=== PATIENT | male | born 1975 | race Caucasian/White ===

== ENCOUNTER 2019-01-19 07:27 | Outpatient (CLI) | payer BC ==
--- NOTE | 2019-01-19 07:53 | ULT ---
US Hepatic Doppler History: Abdominal pain Comparison: None Findings: Real-time grayscale, color, and spectral analysis of the liver was performed including the hepatic vessels Diffuse increased hepatic echotexture. Normal spectral analysis and directional flow of the portal ve ins and hepatic veins. No hepatic mass. The liver is enlarged measuring 21.2 cm. Gallbladder is contracted. No pericholecystic fluid. Spleen is within normal limits. The pancreas is poorly seen. Visualized portion of the aorta and IVC are unremarkable. Portal vein is patent with antegrade flow. Common bile duct measures 5 mm Impression: 1. Hepatomegaly with diffuse hepatic steatosis. No hepatic mass. 2. Normal directional flow and spectral appearance of the portal veins and hepatic veins.
== END 2019-01-19 07:28 | disposition home or self-care (01) ==
LOC: SCSULT 07:27
PROVIDERS: ATTEND Internal Medicine Gastroenterology
DX: K52.9 Noninfective gastroenteritis and colitis, unspecified (principal); R94.5 Abnormal results of liver function studies; R14.0 Abdominal distension (gaseous); R16.0 Hepatomegaly, not elsewhere classified; K76.0 Fatty (change of) liver, not elsewhere classified
CPT/HCPCS: 76705

== ENCOUNTER 2020-08-10 17:36 | Inpatient (IN) | payer OTHER, BC ==
[~2020-08-10 17:36] MED LIST: Iopamidol-370 76% 500 ML 1 ML ONE
[2020-08-10] MEDS ORDERED: Fentanyl 100 MCG/2 ML VIAL ONE (18:08)
[2020-08-10 18:20] LABS: #Basophils 0.1 thou/uL (0.0-0.2); #Eosinphils 0.1 thou/uL (0.0-0.7); #Lymphocytes 4.2 thou/uL (1.20-3.40); #Monocytes 0.9 thou/uL (0.11-0.59); #Neutrophils 10.5 thou/uL (1.40-6.50); %Basophils 0.5 % (0.0-1.0); %Eosinophils 0.6 % (0.0-10.0); %Lymphocytes 26.4 % (21.0-51.0); %Monocytes 5.8 % (0.0-10.0); %Neutrophils 66.7 % (42.0-75.0); Hemoglobin 12.8 g/dL (14.0-18.0); Mean Corpuscular HGB CONC 32.2 g/dL (32.0-36.0); Mean Corpuscular Hemoglobin 30.9 pg (27.0-31.0); Mean Platelet Volume 7.2 fL (7.4-10.4); Platelet Count 205 thou/uL (130-400); RBC Distribution Width 11.8 % (11.5-14.5); Red Blood Cell (RBC) Count 4.16 mill/uL (4.70-6.10); White Blood Cell (WBC) Count 15.8 thou/uL (4.8-10.8)
[2020-08-10 18:26] LABS: INR-International Normal Ratio 1.1; PTT 23.3 sec (22.9-36.1)
[2020-08-10 18:38] LABS: Anion Gap 13 mmol/L (10-20); BUN (Urea Nitrogen) 14 mg/dL (8.9-20.6); Calc. Creatinine Clearance 0 mL/min (70-130); Carbon Dioxide 24 mmol/L (22-29); Chloride 103 mmol/L (98-107); Potassium 3.2 mmol/L (3.5-5.1); Sodium 137 mmol/L (136-145)
[2020-08-10 18:39] LABS: ALT (SGPT) 56 U/L (8-55); AST (SGOT) 44 U/L (5-34); Albumin 3.7 g/dL (3.5-5.0); Alkaline Phosphatase 62 U/L (40-110); Bilirubin, Total 0.5 mg/dL (0.2-1.2); Calcium 8.3 mg/dL (7.8-10.44); Globulin 2.3 g/dL (2.4-3.5); Glucose 176 mg/dL (70-105)
[2020-08-10] MEDS ORDERED: Ketorolac Tromethamine 30 MG/ML VIAL ONE (18:57)
[2020-08-10] MEDS ORDERED: Triple Antibiotic Oint 1 GM Packet ONE ×2 (20:32→20:38)
[2020-08-10 22:17] LABS: SARS-CoV-2 NAA Rapid Test Not Detected (NotDetected)
[2020-08-10] MEDS ORDERED: Ondansetron ODT 4 MG TAB PO PRN (23:08)
[2020-08-10] MEDS ORDERED: Ondansetron PF 4 MG/2 ML Vial IVP PRN (23:08)
[2020-08-10] MEDS ORDERED: Cyclobenzaprine 10 MG TAB PO PRN (23:08)
[2020-08-10] MEDS ORDERED: Dextrose 5% in Water 1,000 ML IV PRN (23:08)
[2020-08-10] MEDS ORDERED: Dextrose 50% Abboject 50 ML SYRINGE SLOW IVP PRN (23:08)
[2020-08-10] MEDS ORDERED: Promethazine HCl 25 MG/ML VIAL IM PRN (23:08)
[2020-08-10 23:20] VITALS: BMI 38.2
[2020-08-10] MEDS ORDERED: Famotidine/PF 20 mg/2ml Vial SLOW IVP SCH (23:30)
[2020-08-10] MEDS: Famotidine/PF 20 mg/2ml Vial SLOW IVP SCH (23:37)
[2020-08-10] MEDS: Morphine 2 MG/ML VIAL SLOW IVP PRN (23:41)
[2020-08-10] MEDS: Sodium Chloride 0.9% 1,000 ML IV SCH (23:50)
[2020-08-10] MEDS: traMADol HCl 50 MG TAB PO SCH (23:50)
[2020-08-10] MEDS: Acetaminophen 500 MG TAB PO SCH (23:51)
[2020-08-11 00:14] LABS: Hemoglobin 13.4 g/dL (14.0-18.0)
[2020-08-11] MEDS: Morphine 2 MG/ML VIAL SLOW IVP PRN ×2 (02:12→08:52)
[2020-08-11 04:07] LABS: Anion Gap 15 mmol/L (10-20); BUN (Urea Nitrogen) 19 mg/dL (8.9-20.6); Calc. Creatinine Clearance 169 mL/min (70-130); Calcium 8.2 mg/dL (7.8-10.44); Carbon Dioxide 21 mmol/L (22-29); Chloride 105 mmol/L (98-107); Glucose 194 mg/dL (70-105); Potassium 4.5 mmol/L (3.5-5.1); Sodium 136 mmol/L (136-145)
[2020-08-11 04:42] LABS: Band 31 % (5-11); Hemoglobin 12.7 g/dL (14.0-18.0); Lymphocytes 4 % (21-51); MDiff Complete? YES; Mean Corpuscular HGB CONC 34.4 g/dL (32.0-36.0); Mean Corpuscular Hemoglobin 32.7 pg (27.0-31.0); Mean Corpuscular Volume 95.1 fL (78.0-98.0); Mean Platelet Volume 7.6 fL (7.4-10.4); Monocytes 7 % (0-10); Neutrophil 58 % (42-75); Platelet Count 198 thou/uL (130-400); RBC Distribution Width 12.1 % (11.5-14.5); Red Blood Cell (RBC) Count 3.89 mill/uL (4.70-6.10); White Blood Cell (WBC) Count 20.1 thou/uL (4.8-10.8)
[2020-08-11] MEDS: Acetaminophen 500 MG TAB PO SCH ×3 (05:24→18:05)
[2020-08-11] MEDS: traMADol HCl 50 MG TAB PO SCH ×3 (05:25→18:07)
[2020-08-11 08:17] LABS: Hemoglobin 13.2 g/dL (14.0-18.0)
[2020-08-11] MEDS: Famotidine/PF 20 mg/2ml Vial SLOW IVP SCH ×2 (08:51→20:31)
[2020-08-11] MEDS: Sodium Chloride 0.9% 1,000 ML IV SCH (08:59)
[2020-08-11] MEDS: Simethicone Chewable 80 MG TAB PO PRN ×2 (11:42→18:05)
[2020-08-11] MEDS ORDERED: Gabapentin 300 MG CAP PO SCH ×2 (12:30→21:00)
[2020-08-11] MEDS: hydrALAZINE 20 MG/ML VIAL SLOW IVP PRN (15:12)
[2020-08-11] MEDS: Acetaminophen 325 MG TAB PO SCH (18:30)
[2020-08-11] MEDS: Oxazepam 10 MG CAP PO SCH (20:31)
[2020-08-11 20:48] LABS: Hemoglobin 11.8 g/dL (14.0-18.0)
[2020-08-11] MEDS: Gabapentin 300 MG CAP PO SCH (21:00)
[2020-08-12] MEDS: Acetaminophen 325 MG TAB PO SCH ×5 (00:06→23:35)
[2020-08-12] MEDS: traMADol HCl 50 MG TAB PO SCH ×5 (00:07→23:33)
[2020-08-12] MEDS: Simethicone Chewable 80 MG TAB PO PRN ×3 (00:11→23:33)
[2020-08-12] MEDS: Amlodipine 10 MG TAB PO SCH (06:22)
[2020-08-12] MEDS ORDERED: Ferrous Sulfate 325 MG TAB PO SCH (08:00)
[2020-08-12] MEDS: Losartan 25 MG TAB PO SCH (08:40)
[2020-08-12] MEDS: Thiamine 100 MG TAB PO SCH (08:41)
[2020-08-12] MEDS: Allopurinol 300 MG TAB PO SCH (08:41)
[2020-08-12] MEDS: Ascorbic Acid 500 mg Chewable Tablet PO SCH (08:41)
[2020-08-12] MEDS: Oxazepam 10 MG CAP PO SCH ×3 (08:41→21:17)
[2020-08-12] MEDS: Famotidine/PF 20 mg/2ml Vial SLOW IVP SCH (08:41)
[2020-08-12] MEDS: Folic Acid 1 MG TAB PO SCH (08:41)
[2020-08-12] MEDS: Gabapentin 300 MG CAP PO SCH ×4 (08:42→21:16)
[2020-08-12] MEDS: Ferrous Sulfate 325 MG TAB PO SCH ×2 (08:52→21:16)
[2020-08-12] MEDS ORDERED: Gabapentin 400 MG CAP PO SCH (09:00)
[2020-08-12 16:45] LABS: Hemoglobin 10.4 g/dL (14.0-18.0)
[2020-08-12] MEDS: Senokot S 8.6-50 MG TAB PO SCH (21:17)
[2020-08-13 06:13] LABS: #Eosinphils 0.1 thou/uL (0.0-0.7); #Lymphocytes 1.7 thou/uL (1.20-3.40); #Monocytes 1.8 thou/uL (0.11-0.59); #Neutrophils 11.8 thou/uL (1.40-6.50); %Basophils 0.2 % (0.0-1.0); %Eosinophils 0.3 % (0.0-10.0); %Lymphocytes 11.1 % (21.0-51.0); %Monocytes 11.8 % (0.0-10.0); %Neutrophils 76.5 % (42.0-75.0); Hemoglobin 9.9 g/dL (14.0-18.0); Mean Corpuscular HGB CONC 33.8 g/dL (32.0-36.0); Mean Corpuscular Hemoglobin 32.7 pg (27.0-31.0); Mean Corpuscular Volume 96.6 fL (78.0-98.0); Mean Platelet Volume 7.3 fL (7.4-10.4); Platelet Count 134 thou/uL (130-400); RBC Distribution Width 12.1 % (11.5-14.5); Red Blood Cell (RBC) Count 3.02 mill/uL (4.70-6.10); White Blood Cell (WBC) Count 15.4 thou/uL (4.8-10.8)
[2020-08-13] MEDS: traMADol HCl 50 MG TAB PO SCH ×4 (06:32→23:25)
[2020-08-13] MEDS: Acetaminophen 325 MG TAB PO SCH ×4 (06:33→23:25)
[2020-08-13] MEDS: Simethicone Chewable 80 MG TAB PO PRN ×3 (06:33→23:26)
[2020-08-13 06:38] LABS: Anion Gap 15 mmol/L (10-20); BUN (Urea Nitrogen) 11 mg/dL (8.9-20.6); Calc. Creatinine Clearance 225 mL/min (70-130); Calcium 8.4 mg/dL (7.8-10.44); Carbon Dioxide 21 mmol/L (22-29); Chloride 98 mmol/L (98-107); Glucose 128 mg/dL (70-105); Magnesium 2.2 mg/dL (1.6-2.6); Potassium 3.9 mmol/L (3.5-5.1); Sodium 130 mmol/L (136-145)
[2020-08-13] MEDS: Senokot S 8.6-50 MG TAB PO SCH ×2 (08:35→19:48)
[2020-08-13] MEDS: Polyethylene Glycol 3350 17 GM Packet PO SCH (08:35)
[2020-08-13] MEDS: Oxazepam 10 MG CAP PO SCH ×3 (08:35→19:49)
[2020-08-13] MEDS: Gabapentin 300 MG CAP PO SCH ×3 (08:36→19:49)
[2020-08-13] MEDS: Amlodipine 10 MG TAB PO SCH (08:37)
[2020-08-13] MEDS: Losartan 25 MG TAB PO SCH (08:37)
[2020-08-13] MEDS: Ascorbic Acid 500 mg Chewable Tablet PO SCH (08:37)
[2020-08-13] MEDS: Ferrous Sulfate 325 MG TAB PO SCH ×2 (08:38→19:49)
[2020-08-13] MEDS: Folic Acid 1 MG TAB PO SCH (08:38)
[2020-08-13] MEDS: Allopurinol 300 MG TAB PO SCH (08:38)
[2020-08-13] MEDS: Thiamine 100 MG TAB PO SCH (08:39)
[2020-08-14] MEDS: Simethicone Chewable 80 MG TAB PO PRN (05:31)
[2020-08-14] MEDS: traMADol HCl 50 MG TAB PO SCH ×4 (05:31→23:37)
[2020-08-14] MEDS: Acetaminophen 325 MG TAB PO SCH ×4 (05:32→23:36)
[2020-08-14] MEDS: Amlodipine 10 MG TAB PO SCH (06:18)
[2020-08-14] MEDS: Gabapentin 300 MG CAP PO SCH ×3 (08:27→20:57)
[2020-08-14] MEDS: Folic Acid 1 MG TAB PO SCH (08:28)
[2020-08-14] MEDS: Losartan 25 MG TAB PO SCH (08:28)
[2020-08-14] MEDS: Oxazepam 10 MG CAP PO SCH ×3 (08:28→20:56)
[2020-08-14] MEDS: Ferrous Sulfate 325 MG TAB PO SCH ×2 (08:28→20:56)
[2020-08-14] MEDS: Thiamine 100 MG TAB PO SCH (08:28)
[2020-08-14] MEDS: Ascorbic Acid 500 mg Chewable Tablet PO SCH (08:28)
[2020-08-14] MEDS: Allopurinol 300 MG TAB PO SCH (08:28)
[2020-08-14] MEDS: Senokot S 8.6-50 MG TAB PO SCH ×2 (08:29→20:55)
[2020-08-14] MEDS: Polyethylene Glycol 3350 17 GM Packet PO SCH (08:29)
[2020-08-14] MEDS: Neostigmine 0.5 MG in Syringe 0 ML SC SCH ×3 (10:15→20:56)
[2020-08-14] MEDS: hydrALAZINE 20 MG/ML VIAL SLOW IVP PRN (14:52)
[2020-08-15] MEDS: Neostigmine 0.5 MG in Syringe 0 ML SC SCH ×3 (03:12→20:36)
[2020-08-15] MEDS: traMADol HCl 50 MG TAB PO SCH ×4 (05:32→23:04)
[2020-08-15] MEDS: Acetaminophen 325 MG TAB PO SCH ×4 (05:32→23:04)
[2020-08-15] MEDS: Simethicone Chewable 80 MG TAB PO PRN (05:35)
[2020-08-15 06:27] LABS: Anion Gap 13 mmol/L (10-20); BUN (Urea Nitrogen) 12 mg/dL (8.9-20.6); Calc. Creatinine Clearance 238 mL/min (70-130); Calcium 8.8 mg/dL (7.8-10.44); Carbon Dioxide 27 mmol/L (22-29); Chloride 94 mmol/L (98-107); Glucose 124 mg/dL (70-105); Magnesium 2.4 mg/dL (1.6-2.6); Phosphorus 2.1 mg/dL (2.3-4.7); Potassium 3.1 mmol/L (3.5-5.1); Sodium 131 mmol/L (136-145)
[2020-08-15] MEDS ORDERED: Potassium Chloride 20 MEQ TAB PO SCH (07:15)
[2020-08-15] MEDS ORDERED: Potassium Phosphate 9 MMOL in Sodium Chloride 0.9% 100 ML IVPB SCH (07:15)
[2020-08-15 07:17] LABS: Band 12 % (5-11); Hemoglobin 10.4 g/dL (14.0-18.0); Lymphocytes 13 % (21-51); MDiff Complete? YES; Mean Corpuscular HGB CONC 33.5 g/dL (32.0-36.0); Mean Corpuscular Hemoglobin 32.5 pg (27.0-31.0); Mean Corpuscular Volume 97.2 fL (78.0-98.0); Mean Platelet Volume 6.8 fL (7.4-10.4); Monocytes 9 % (0-10); Neutrophil 66 % (42-75); Nucleated RBC 1 % (0); Platelet Count 206 thou/uL (130-400); RBC Distribution Width 12.3 % (11.5-14.5); Red Blood Cell (RBC) Count 3.21 mill/uL (4.70-6.10); White Blood Cell (WBC) Count 13.3 thou/uL (4.8-10.8)
[2020-08-15] MEDS: Ascorbic Acid 500 mg Chewable Tablet PO SCH (08:24)
[2020-08-15] MEDS: Thiamine 100 MG TAB PO SCH (08:24)
[2020-08-15] MEDS: Losartan 25 MG TAB PO SCH (08:25)
[2020-08-15] MEDS: Folic Acid 1 MG TAB PO SCH (08:25)
[2020-08-15] MEDS: Amlodipine 10 MG TAB PO SCH (08:26)
[2020-08-15] MEDS: Gabapentin 300 MG CAP PO SCH (08:27)
[2020-08-15] MEDS: Ferrous Sulfate 325 MG TAB PO SCH ×2 (08:27→20:36)
[2020-08-15] MEDS: Allopurinol 300 MG TAB PO SCH (08:27)
[2020-08-15] MEDS: Oxazepam 10 MG CAP PO SCH ×3 (08:28→20:37)
[2020-08-15] MEDS ORDERED: Furosemide 20 MG/2 ML VIAL SLOW IVP SCH (09:00)
[2020-08-15] MEDS ORDERED: Silver Sulfadiazine 50 GM JAR TP PRN (10:37)
[2020-08-15] MEDS: Senokot S 8.6-50 MG TAB PO SCH ×2 (11:55→20:39)
[2020-08-15] MEDS: Polyethylene Glycol 3350 17 GM Packet PO SCH (11:55)
[2020-08-15] MEDS: Gabapentin 100 MG CAP PO SCH ×2 (16:09→20:38)
[2020-08-15] MEDS: Ibuprofen 200 MG TAB PO SCH ×2 (16:09→20:38)
[2020-08-15 16:24] LABS: Anion Gap 14 mmol/L (10-20); BUN (Urea Nitrogen) 14 mg/dL (8.9-20.6); Calc. Creatinine Clearance 212 mL/min (70-130); Carbon Dioxide 26 mmol/L (22-29); Chloride 94 mmol/L (98-107); Glucose 119 mg/dL (70-105); Magnesium 2.4 mg/dL (1.6-2.6); Sodium 131 mmol/L (136-145)
[2020-08-15 16:40] LABS: Potassium 2.8 mmol/L (3.5-5.1)
[2020-08-15] MEDS ORDERED: Potassium Phosphate 40 MMOL in Sodium Chloride 0.9% 250 ML 250 ML IVPB SCH (17:15)
[2020-08-16] MEDS: Neostigmine 0.5 MG in Syringe 0 ML SC SCH ×2 (01:37→10:11)
[2020-08-16] MEDS: traMADol HCl 50 MG TAB PO SCH ×4 (05:28→23:01)
[2020-08-16] MEDS: Ibuprofen 200 MG TAB PO SCH ×3 (05:29→23:01)
[2020-08-16] MEDS: Acetaminophen 325 MG TAB PO SCH ×4 (05:29→23:00)
[2020-08-16 06:49] LABS: Anion Gap 13 mmol/L (10-20); BUN (Urea Nitrogen) 13 mg/dL (8.9-20.6); Calc. Creatinine Clearance 248 mL/min (70-130); Calcium 8.6 mg/dL (7.8-10.44); Carbon Dioxide 26 mmol/L (22-29); Chloride 97 mmol/L (98-107); Glucose 129 mg/dL (70-105); Magnesium 2.3 mg/dL (1.6-2.6); Phosphorus 2.4 mg/dL (2.3-4.7); Sodium 133 mmol/L (136-145)
[2020-08-16 06:54] LABS: Potassium 2.7 mmol/L (3.5-5.1)
[2020-08-16] MEDS ORDERED: Potassium Chloride 20 MEQ TAB PO SCH ×2 (07:00→18:45)
[2020-08-16] MEDS ORDERED: Potassium Phosphate 30 MMOL in Sodium Chloride 0.9% 250 ML 250 ML IVPB SCH (07:00)
[2020-08-16] MEDS: Amlodipine 10 MG TAB PO SCH (09:02)
[2020-08-16] MEDS: Gabapentin 100 MG CAP PO SCH ×3 (09:03→19:54)
[2020-08-16] MEDS: Oxazepam 10 MG CAP PO SCH ×3 (09:03→19:53)
[2020-08-16] MEDS: Ascorbic Acid 500 mg Chewable Tablet PO SCH (09:05)
[2020-08-16] MEDS: Ferrous Sulfate 325 MG TAB PO SCH ×2 (09:05→19:54)
[2020-08-16] MEDS: Thiamine 100 MG TAB PO SCH (09:05)
[2020-08-16] MEDS: Folic Acid 1 MG TAB PO SCH (09:05)
[2020-08-16] MEDS: Allopurinol 300 MG TAB PO SCH (09:05)
[2020-08-16] MEDS: Senokot S 8.6-50 MG TAB PO SCH ×2 (09:06→19:54)
[2020-08-16] MEDS: Losartan 25 MG TAB PO SCH (09:06)
[2020-08-16] MEDS: Polyethylene Glycol 3350 17 GM Packet PO SCH (09:06)
[2020-08-16 09:21] LABS: #Eosinphils 0.1 thou/uL (0.0-0.7); #Monocytes 1.6 thou/uL (0.11-0.59); #Neutrophils 10.2 thou/uL (1.40-6.50); %Basophils 0.3 % (0.0-1.0); %Lymphocytes 14.3 % (21.0-51.0); %Monocytes 11.5 % (0.0-10.0); %Neutrophils 72.9 % (42.0-75.0); Hemoglobin 10.9 g/dL (14.0-18.0); Mean Corpuscular HGB CONC 34.2 g/dL (32.0-36.0); Mean Corpuscular Volume 96.7 fL (78.0-98.0); Mean Platelet Volume 6.5 fL (7.4-10.4); Platelet Count 276 thou/uL (130-400); RBC Distribution Width 12.4 % (11.5-14.5); Red Blood Cell (RBC) Count 3.31 mill/uL (4.70-6.10)
[2020-08-16 18:25] LABS: Phosphorus 3.7 mg/dL (2.3-4.7)
[2020-08-16 18:26] LABS: Anion Gap 14 mmol/L (10-20); BUN (Urea Nitrogen) 11 mg/dL (8.9-20.6); Calc. Creatinine Clearance 238 mL/min (70-130); Calcium 8.6 mg/dL (7.8-10.44); Carbon Dioxide 25 mmol/L (22-29); Chloride 101 mmol/L (98-107); Glucose 97 mg/dL (70-105); Potassium 3.7 mmol/L (3.5-5.1); Sodium 136 mmol/L (136-145)
[2020-08-16] MEDS: Simethicone Chewable 80 MG TAB PO PRN (19:53)
[2020-08-16] MEDS: Enoxaparin Sodium 40 MG/0.4 ML SYRINGE SC SCH (19:53)
[2020-08-17 05:29] LABS: #Basophils 0.1 thou/uL (0.0-0.2); #Eosinphils 0.3 thou/uL (0.0-0.7); #Lymphocytes 2.1 thou/uL (1.20-3.40); #Monocytes 1.8 thou/uL (0.11-0.59); #Neutrophils 9.6 thou/uL (1.40-6.50); %Basophils 0.6 % (0.0-1.0); %Eosinophils 1.8 % (0.0-10.0); %Lymphocytes 15.2 % (21.0-51.0); %Monocytes 13.1 % (0.0-10.0); %Neutrophils 69.3 % (42.0-75.0); Hemoglobin 10.2 g/dL (14.0-18.0); Mean Corpuscular HGB CONC 31.6 g/dL (32.0-36.0); Mean Corpuscular Hemoglobin 30.7 pg (27.0-31.0); Mean Corpuscular Volume 97.1 fL (78.0-98.0); Mean Platelet Volume 6.3 fL (7.4-10.4); Platelet Count 308 thou/uL (130-400); RBC Distribution Width 12.5 % (11.5-14.5); Red Blood Cell (RBC) Count 3.32 mill/uL (4.70-6.10); White Blood Cell (WBC) Count 13.9 thou/uL (4.8-10.8)
[2020-08-17 05:54] LABS: Anion Gap 15 mmol/L (10-20); BUN (Urea Nitrogen) 8 mg/dL (8.9-20.6); Calc. Creatinine Clearance 252 mL/min (70-130); Calcium 8.9 mg/dL (7.8-10.44); Carbon Dioxide 23 mmol/L (22-29); Chloride 101 mmol/L (98-107); Glucose 100 mg/dL (70-105); Sodium 136 mmol/L (136-145)
[2020-08-17 06:04] LABS: Potassium 2.8 mmol/L (3.5-5.1)
[2020-08-17] MEDS: traMADol HCl 50 MG TAB PO SCH ×4 (06:21→23:20)
[2020-08-17] MEDS: Acetaminophen 325 MG TAB PO SCH ×4 (06:21→23:20)
[2020-08-17] MEDS: Ibuprofen 200 MG TAB PO SCH ×3 (06:21→21:00)
[2020-08-17 07:14] LABS: Potassium 2.9 mmol/L (3.5-5.1)
[2020-08-17] MEDS ORDERED: Potassium Chloride 20 MEQ in Premix Bag 1 BAG IVPB SCH ×3 (07:45→12:00)
[2020-08-17] MEDS: Allopurinol 300 MG TAB PO SCH (09:26)
[2020-08-17] MEDS: Ferrous Sulfate 325 MG TAB PO SCH ×2 (09:26→21:00)
[2020-08-17] MEDS: Oxazepam 10 MG CAP PO SCH ×3 (09:26→21:00)
[2020-08-17] MEDS: Ascorbic Acid 500 mg Chewable Tablet PO SCH (09:26)
[2020-08-17] MEDS: Folic Acid 1 MG TAB PO SCH (09:26)
[2020-08-17] MEDS: Gabapentin 100 MG CAP PO SCH ×3 (09:26→21:00)
[2020-08-17] MEDS: Amlodipine 10 MG TAB PO SCH (09:27)
[2020-08-17] MEDS: Thiamine 100 MG TAB PO SCH (09:27)
[2020-08-17] MEDS: Losartan 25 MG TAB PO SCH (09:27)
[2020-08-17] MEDS: Polyethylene Glycol 3350 17 GM Packet PO SCH (09:28)
[2020-08-17] MEDS: Senokot S 8.6-50 MG TAB PO SCH (09:28)
[2020-08-17] MEDS ORDERED: Saccharomyces boulardii 250 MG CAP PO SCH (11:45)
[2020-08-17] MEDS ORDERED: Pepto Bismol Chew TAB PO SCH (12:00)
[2020-08-17 17:57] LABS: Anion Gap 16 mmol/L (10-20); BUN (Urea Nitrogen) 8 mg/dL (8.9-20.6); Calc. Creatinine Clearance 209 mL/min (70-130); Calcium 8.8 mg/dL (7.8-10.44); Carbon Dioxide 23 mmol/L (22-29); Chloride 103 mmol/L (98-107); Glucose 141 mg/dL (70-105); Potassium 3.6 mmol/L (3.5-5.1); Sodium 138 mmol/L (136-145)
[2020-08-17] MEDS: Enoxaparin Sodium 40 MG/0.4 ML SYRINGE SC SCH (21:01)
[2020-08-18] MEDS: Ibuprofen 200 MG TAB PO SCH (05:21)
[2020-08-18] MEDS: Acetaminophen 325 MG TAB PO SCH ×2 (05:22→12:22)
[2020-08-18] MEDS: traMADol HCl 50 MG TAB PO SCH ×2 (05:22→12:22)
[2020-08-18 05:53] LABS: Anion Gap 14 mmol/L (10-20); BUN (Urea Nitrogen) 8 mg/dL (8.9-20.6); Calc. Creatinine Clearance 252 mL/min (70-130); Calcium 8.9 mg/dL (7.8-10.44); Carbon Dioxide 23 mmol/L (22-29); Chloride 101 mmol/L (98-107); Glucose 119 mg/dL (70-105); Potassium 3.2 mmol/L (3.5-5.1); Sodium 135 mmol/L (136-145)
[2020-08-18] MEDS ORDERED: Pepto Bismol Chew TAB PO PRN (07:21)
[2020-08-18] MEDS ORDERED: Potassium Chloride 20 MEQ TAB PO SCH (08:00)
[2020-08-18 08:24] VITALS: TEMP 98
[2020-08-18] MEDS ORDERED: Saccharomyces boulardii 250 MG CAP PO SCH (09:00)
[2020-08-18] MEDS: Potassium Chloride 20 MEQ/100 ML PREMIX BAG IVPB SCH ×2 (09:33→10:12)
[2020-08-18] MEDS: Pepto Bismol Chew TAB PO SCH ×3 (09:33→12:22)
[2020-08-18] MEDS: Allopurinol 300 MG TAB PO SCH (09:33)
[2020-08-18] MEDS: Ferrous Sulfate 325 MG TAB PO SCH (09:33)
[2020-08-18] MEDS: Folic Acid 1 MG TAB PO SCH (09:34)
[2020-08-18] MEDS: Losartan 25 MG TAB PO SCH (09:34)
[2020-08-18] MEDS: Amlodipine 10 MG TAB PO SCH (09:34)
[2020-08-18] MEDS: Ascorbic Acid 500 mg Chewable Tablet PO SCH (09:35)
[2020-08-18] MEDS: Thiamine 100 MG TAB PO SCH (09:35)
[2020-08-18] MEDS: Oxazepam 10 MG CAP PO SCH (09:35)
[2020-08-18] MEDS: Gabapentin 100 MG CAP PO SCH (09:35)
[2020-08-18 12:01] VITALS: BP 160/98
== END 2020-08-18 13:20 | disposition home or self-care (01) | DRG 964 ==
LOC: ERS 17:36 → IMCU/EMU 18:21 → SURG A 08-11 17:47
PROVIDERS: ADMIT Surgery; ATTEND Surgery
DX: S22.42XA Multiple fractures of ribs, left side, initial encounter for closed fracture (principal); S36.032A Major laceration of spleen, initial encounter; E27.49 Other adrenocortical insufficiency; S37.012A Minor contusion of left kidney, initial encounter; K56.7 Ileus, unspecified; S37.032A Laceration of left kidney, unspecified degree, initial encounter; S36.112A Contusion of liver, initial encounter; S36.113A Laceration of liver, unspecified degree, initial encounter; E87.6 Hypokalemia; R19.7 Diarrhea, unspecified; E87.5 Hyperkalemia; V29.9XXA Motorcycle rider (driver) (passenger) injured in unspecified traffic accident, initial encounter
CPT/HCPCS: 0240U; 36415; 36430; 70450; 71045; 71260; 72125; 74019; 74177; 80048; 80053; 83735; 84100; 85025; 85610; 85730; 86850; 86900; 86901; 94640; 96365; 96375; G0390; J0360; J0690; J1650; J1885; J1940; J2270; J2405; J2710; J3010; J3480; J3490; J7050; J7620; P9016; Q9967; S0028

== ENCOUNTER 2020-08-20 14:56 | Outpatient (CLI) | payer BC, OTHER | END 2020-08-20 14:57 | disposition home or self-care (01) | LOC: BICRAD 14:56 | PROVIDERS: ATTEND Surgery | DX: S22.32XA Fracture of one rib, left side, initial encounter for closed fracture (principal); V89.2XXA Person injured in unspecified motor-vehicle accident, traffic, initial encounter | CPT/HCPCS: 71046 ==

== ENCOUNTER 2020-10-23 08:31 | Outpatient (CLI) | payer OTHER, BC ==
[2020-10-23 09:00] LABS: Estimated GFR-MDRD - POC Greater than 90
== END 2020-10-23 08:32 | disposition home or self-care (01) ==
LOC: BICCT 08:31
PROVIDERS: ATTEND Surgery
DX: S22.49XA Multiple fractures of ribs, unspecified side, initial encounter for closed fracture (principal); S36.039A Unspecified laceration of spleen, initial encounter; K76.0 Fatty (change of) liver, not elsewhere classified; E27.49 Other adrenocortical insufficiency; D73.5 Infarction of spleen; V29.9XXA Motorcycle rider (driver) (passenger) injured in unspecified traffic accident, initial encounter
CPT/HCPCS: 74177; 82565